=== PATIENT | female | born 1990 | race Caucasian/White ===

== ENCOUNTER 2016-09-29 23:22 | Inpatient (IN) | payer OTHER ==
[~2016-09-29] VITALS: Ht 157.5 cm; Wt 51.1 kg
[2016-09-29 23:54] LABS: BASOPHILS % (AUTO) 0.3 % (0.0-2.0); EOSINOPHILS % (AUTO) 1.8 % (1.0-6.0); HEMATOCRIT 38.2 % (36-46); HEMOGLOBIN 12.7 g/dL (12.0-16.0); LYMPHOCYTES # (AUTO) 3.1 K/uL (1.0-4.8); LYMPHOCYTES % (AUTO) 47.6 % (22.0-44.0); MEAN CORPUSCULAR HEMOGLOBIN 32.1 pg (26.0-34.0); MEAN CORPUSCULAR HGB CONC 33.1 G/dL (31.0-37.0); MEAN CORPUSCULAR VOLUME 97 fL (80-100); MONOCYTES # (AUTO) 0.4 K/uL (0.1-1.0); NEUTROPHILS # (AUTO) 2.8 K/uL (1.8-7.7); NEUTROPHILS % (AUTO) 44.3 % (40.0-70.0); PLATELET COUNT (AUTO) 313 K/uL (150-450); RED BLOOD CELL COUNT(AUTO) 3.94 MIL/uL (4.00-5.20); RED CELL DISTRIBUTION WIDTH 12.8 % (11.5-14.5); WHITE BLOOD COUNT (AUTO) 6.4 K/uL (4.5-11.0)
[2016-09-29 23:56] LABS: GLUCOSE,POINT OF CARE 80 MG/DL (70-110)
[2016-09-30 00:02] LABS: ANION GAP 11 mmol/L (8-16); CALCIUM, TOTAL 8.5 mg/dL (8.8-10.5); CARBON DIOXIDE 27 mmol/L (22-29); CHLORIDE 107 mmol/L (98-107); CREATININE 0.81 mg/dL (0.60-1.30); GLOMERULAR FILTR. RATE CALC > 60 mL/min (>60); POTASSIUM 3.8 mmol/L (3.5-5.1); SODIUM SERUM 145 mmol/L (136-145); UREA NITROGEN, BLOOD 10 mg/dL (7-18)
[2016-09-30 00:04] LABS: SALICYLATE < 2.8 mg/dL (2.8-20.0)
[2016-09-30 00:07] LABS: ALANINE AMINOTRANSFERASE 27 U/L (12-78); ALBUMIN 3.9 g/dL (3.4-5.0); ASPARTATE AMINOTRANSFERASE 23 U/L (15-37); BILIRUBIN,TOTAL 0.2 mg/dL (0.1-1.0); TOTAL PROTEIN, SERUM 7.3 g/dL (6.4-8.2)
[2016-09-30 00:21] LABS: ACETAMINOPHEN < 2 mcg/mL (10-30)
[2016-09-30] MEDS ORDERED: SODIUM CHLORIDE 0.9% 1,000 ML IV ONE (00:22)
[2016-09-30] MEDS ORDERED: NALOXONE HCL 1 MG/ML 2 ML SYG IVP ONE (01:00)
[2016-09-30] MEDS ORDERED: ZOLPIDEM TARTRATE 10 MG TABLET PO PRN (05:00)
[2016-09-30] MEDS ORDERED: LORazepam 2 MG TABLET PO PRN (05:00)
[2016-09-30] MEDS ORDERED: HALOPERIDOL 5 MG TABLET PO PRN (05:00)
[2016-09-30 06:02] LABS: APPEARANCE,URINE CLEAR (CLEAR)
[2016-09-30 06:05] LABS: ADD UA MICROSCOPIC NO; GLUCOSE, URINE (UA) NEGATIVE (NEGATIVE); KETONES,URINE NEGATIVE (NEGATIVE); LEUKOCYTE ESTERASE ,URINE NEGATIVE (NEGATIVE); OCCULT BLOOD,URINE NEGATIVE (NEGATIVE); PH,URINE 5.5 (5.0-8.0); PROTEIN,URINE NEGATIVE (NEGATIVE)
[2016-09-30 09:14] VITALS: BP 116/74
[2016-09-30] MEDS ORDERED: INFLUENZA VIRUS VACCINE QVS 2016-17 (3YR+)/PF 60 MCG/0.5 ML SYRINGE IM ONE (10:15)
[2016-09-30] MEDS ORDERED: CloNIDine HCL 0.1 MG TABLET PO PRN (10:30)
[2016-09-30] MEDS: NICOTINE 14 MG/24 HOUR PATCH TD SCH (10:55)
[2016-09-30 16:30] VITALS: BP 117/71
[2016-09-30] MEDS ORDERED: PARoxetine HCL 20 MG TABLET PO SCH (21:00)
[2016-10-01 08:30] VITALS: BP 114/67
[2016-10-01] MEDS ORDERED: PARO20TA24 PO (10:58)
[2016-10-01] MEDS: NICOTINE 14 MG/24 HOUR PATCH TD SCH (11:23)
== END 2016-10-01 13:28 | disposition home or self-care (01) | DRG 885 ==
LOC: EMS 23:26 → 3EI 09-30 08:46
PROVIDERS: ADMIT Psychiatry & Neurology Child & Adolescent Psychiatry; ATTEND Psychiatry & Neurology Child & Adolescent Psychiatry
PROC: 3E0234Z Introduction of Serum, Toxoid and Vaccine into Muscle, Percutaneous Approach (ICD-10-PCS; principal; 2016-09-30)
DX: F33.2 Major depressive disorder, recurrent severe without psychotic features (principal); R45.851 Suicidal ideations; T42.4X2A Poisoning by benzodiazepines, intentional self-harm, initial encounter; F25.9 Schizoaffective disorder, unspecified; F41.9 Anxiety disorder, unspecified; F43.10 Post-traumatic stress disorder, unspecified; F19.10 Other psychoactive substance abuse, uncomplicated; F10.10 Alcohol abuse, uncomplicated; Z71.51 Drug abuse counseling and surveillance of drug abuser; Z23 Encounter for immunization; Z88.0 Allergy status to penicillin; Z88.1 Allergy status to other antibiotic agents; Z71.41 Alcohol abuse counseling and surveillance of alcoholic; Z62.819 Personal history of unspecified abuse in childhood; Z81.8 Family history of other mental and behavioral disorders; Y93.89 Activity, other specified; Y92.89 Other specified places as the place of occurrence of the external cause; Y99.8 Other external cause status
CPT/HCPCS: 82962; 90471; 93005; 96374; 99285; G0480; G0481; J2310; J7030